=== PATIENT | female | born 1965 | race American Indian/Alaskan Native ===

== ENCOUNTER 2020-07-04 04:48 | Inpatient (IN) | payer MEDICARE ==
--- NOTE | 2020-07-04 05:56 | XRay Report ---
CHEST 1 VIEW 07/04/2020 5:46 AM INDICATION / CLINICAL INFORMATION: Chest Pain. COMPARISON: None available. FINDINGS: SUPPORT DEVICES: None. HEART / MEDIASTINUM: Heart is upper normal size. Median sternotomy wires and aortic valve prosthesis. LUNGS / PLEURA: No significant pulmonary or pleural abnormality. No pneumothorax. ADDITIONAL FINDINGS: Age-indeterminate bilateral lower rib fractures. Cervicothoracic spinal fusion h ardware. IMPRESSION: 1. No acute pulmonary or pleural findings. 2. Age-indeterminate rib fractures. Signer Name: Leonard Vidal MD Signed: 07/04/2020 5:51 AM Workstation Name: [id number]
[2020-07-04 06:09] LABS: Blood Urea Nitrogen 17 mg/dL (7-17); Calcium 8.5 mg/dL (8.4-10.2); Hemolysis Index 1
[2020-07-04 06:10] LABS: BUN/Creatinine Ratio 28
[2020-07-04 06:12] LABS: Mean Corpuscular HGB Conc 29 % (30-34); Mean Corpuscular Volume 75 fl (79-97); Platelet Count 576 K/mm3 (140-440); Red Blood Count 3.52 M/mm3 (3.65-5.03)
[2020-07-04 06:14] LABS: Hematocrit 26.3 % (30.3-42.9); Hemoglobin 7.6 gm/dl (10.1-14.3)
[2020-07-04 07:18] LABS: Anisocytosis 1+; Eosinophils % (Manual) 0 % (0.0-4.3); Hypochromasia 1+; Total Cells Counted 100
[2020-07-04 07:19] LABS: Platelet Estimate Consistent w Auto; Target Cells 1+
[2020-07-04] MEDS ORDERED: SODIUM CHLORIDE 0.9% 1000 ML 1,000 ML IV ONE (08:25)
--- NOTE | 2020-07-04 08:46 | Emergency Department Report ---
ED General Adult HPI - General Chief complaint: Chest Pain Stated complaint: FEEDING TUBE OUT/CHEST PAIN/SOB Time Seen by Provider: 07/04/20 07:40 Source: patient Mode of arrival: Ambulatory Limitations: No Limitations - History of Present Illness Initial comments: Patient is a 54-year-old female who is presenting with dysfunction of her feeding tube. Patient's feeding tube came out approximately 2 AM. States has been in since September 2019. She has a feeding tube because she is aspirating. Patient takes all of her medications and food through the feeding tube. She is just starting to advance her diet with ice chips and small amounts of water. Patient has a past medical history of Hodgkin's lymphoma. Patient states after the tube came out she started having some chest pressure palpitations or shortness of breath. She believes this is secondary to anxiety. Since she is arrived to the hospital she is feeling better. - Related Data Allergies Allergy/AdvReac Type Severity Reaction Status Date / Time ibuprofen Allergy Swelling Verified 07/04/20 05:02 ED Review of Systems ROS: Stated complaint: FEEDING TUBE OUT/CHEST PAIN/SOB Other details as noted in HPI Comment: All other systems reviewed and negative ED Past Medical Hx - Past Medical History Previous Medical History?: Yes Hx of Cancer: Yes (hodgkins) Hx Arthritis: Yes (Osteo) Hx COPD: Yes Additional medical history: Hypotension, Heart problems - Surgical History Past Surgical History?: Yes Hx Open Heart Surgery: Yes Additional Surgical History: left hip replacement, feeding tube, ablation, splee nectomy - Social History Smoking Status: Former Smoker ED Physical Exam - General Limitations: No Limitations General appearance: alert, in no apparent distress - Head Head exam: Present: atraumatic, normocephalic - Eye Eye exam: Present: normal appearance - ENT ENT exam: Present: mucous membranes moist - Neck Neck exam: Present: normal inspection - Respiratory Respiratory exam: Present: normal lung sounds bilaterally. Absent: respiratory distress, wheezes, rales, rhonchi - Cardiovascular Cardiovascular Exam: Present: regular rate, normal rhythm. Absent: systolic murmur, diastolic murmur, rubs, gallop - GI/Abdominal GI/Abdominal exam: Present: soft, normal bowel sounds. Absent: distended, tenderness, guarding - Extremities Exam Extremities exam: Present: normal inspection - Back Exam Back exam: Present: normal inspection - Neurological Exam Neurological exam: Present: alert, oriented X3 - Psychiatric Psychiatric exam: Present: normal affect, normal mood - Skin Skin exam: Present: warm, dry, intact, normal color. Absent: rash ED Course Vital Signs 07/04/20 04:59 Temperature 98.6 F Pulse Rate 107 H Respiratory 20 Rate Blood Pressure 128/78 O2 Sat by Pulse 92 Oximetry ED Medical Decision Making - Lab Data Result diagrams: 07/04/20 05:11 07/04/20 05:11 Lab Results 07/04/20 07/04/20 Range/Units 05:11 05:11 WBC 12.5 H (4.5-11.0) K/mm3 RBC 3.52 L (3.65-5.03) M/mm3 Hgb 7.6 L (10.1-14.3) gm/dl Hct 26.3 L (30.3-42.9) % MCV 75 L (79-97) fl MCH 22 L (28-32) pg MCHC 29 L (30-34) % RDW 20.0 H (13.2-15.2) % Plt Count 576 H (140-440) K/mm3 Lymph % (Auto) Supervisor Refining [place] % (Auto) Supervisor Refining Eos % (Auto) Supervisor Refining Baso % (Auto) Supervisor Refining Lymph # (Auto) Supervisor Refining [place] # (Auto) Supervisor Refining Eos # (Auto) Supervisor Refining Baso # (Auto) Supervisor Refining Add Manual Diff Complete Total Counted 100 Seg Neutrophils % Supervisor Refining Seg Neuts % (Manual) 71.0 H (40.0-70.0) % Band Neutrophils % 0 % Lymphocytes % (Manual) 13.0 L (13.4-35.0) % Reactive Lymphs % (Man) 0 % Monocytes % (Manual) 15.0 H (0.0-7.3) % Eosinophils % (Manual) 0 (0.0-4.3) % Basophils % (Manual) 1.0 (0.0-1.8) % Metamyelocytes % 0 % Myelocytes % 0 % Promyelocytes % 0 % Blast Cells % 0 % Nucleated RBC % 2.0 H (0.0-0.9) % Seg Neutrophils # Supervisor Refining Seg Neutrophils # Man 8.9 H (1.8-7.7) K/mm3 Band Neutrophils # 0.0 K/mm3 Lymphocytes # (Manual) 1.6 (1.2-5.4) K/mm3 Abs React Lymphs (Man) 0.0 K/mm3 Monocytes # (Manual) 1.9 H (0.0-0.8) K/mm3 Eosinophils # (Manual) 0.0 (0.0-0.4) K/mm3 Basophils # (Manual) 0.1 (0.0-0.1) K/mm3 Metamyelocytes # 0.0 K/mm3 Myelocytes # 0.0 K/mm3 Promyelocytes # 0.0 K/mm3 Blast Cells # 0.0 K/mm3 WBC Morphology Not Reportable Hypersegmented Neuts Not Reportable Hyposegmented Neuts Not Reportable Hypogranular Neuts Not Reportable Smudge Cells Not Reportable Toxic Granulation Not Reportable Toxic Vacuolation Not Reportable Dohle Bodies Not Reportable Pelger-Huet Anomaly Not Reportable Cris Rods Not Reportable Platelet Estimate Consistent w auto Clumped Platelets Not Reportable Plt Clumps, EDTA Not Reportable Large Platelets Not Reportable Giant Platelets Not Reportable Platelet Satelliting Not Reportable Plt Morphology Comment Not Reportable RBC Morphology Not Reportable Dimorphic RBCs Not Reportable Polychromasia Not Reportable Hypochromasia 1+ Poikilocytosis Not Reportable Anisocytosis 1+ Microcytosis Not Reportable Macrocytosis Not Reportable Spherocytes Not Reportable Pappenheimer Bodies Not Reportable Sickle Cells Not Reportable Target Cells 1+ Tear Drop Cells Not Reportable Ovalocytes Not Reportable Helmet Cells Not Reportable Rosen-Effie Bodies Not Reportable [place] Rings Not Reportable [place] Cells Not Reportable Bite Cells Not Reportable Crenated Cell Not Reportable Elliptocytes Not Reportable Acanthocytes (Spur) Not Reportable Rouleaux Not Reportable Hemoglobin C Crystals Not Reportable Schistocytes Not Reportable Malaria parasites Not Reportable Freddy Bodies Not Reportable Hem Pathologist Commnt No Sodium 131 L (137-145) mmol/L Potassium 4.4 (3.6-5.0) mmol/L Chloride 88.0 L (98-107) mmol/L Carbon Dioxide 27 (22-30) mmol/L Anion Gap 20 mmol/L BUN 17 (7-17) mg/dL Creatinine 0.6 (0.6-1.2) mg/dL Estimated GFR > 60 ml/min BUN/Creatinine Ratio 28 % Glucose 88 (65-100) mg/dL Calcium 8.5 (8.4-10.2) mg/dL Troponin T < 0.010 (0.00-0.029) ng/mL - Medical Decision Making At the time of my exam patient is feeding tube have been out for approximately 5 hours. Was a prolonged wait time to get the patient to the room. I attempted to pass a 22 and 24 [place] feeding tube was unsuccessful. There is a great deal of resistance and there was a small amount of bleeding. The stoma appears to have closed. Consulted GI and patient will be admitted to the hospitalist service. Patient's chest pain is likely atypical and secondary to anxiety. Patient does show evidence of some mild dehydration. Critical care attestation.: If time is entered above; I have spent that time in minutes in the direct care of this critically ill patient, excluding procedure time. ED Disposition Clinical Impression: Feeding tube dysfunction, Dehydration, Hyponatremia Disposition: OP ADMIT IP TO THIS HOSP Is pt being admited?: Yes Does the pt Need Aspirin: No Condition: Stable Referrals: PRIMARY CARE, [Primary Care Provider] - 3-5 Days Time of Disposition: 08:45
--- NOTE | 2020-07-04 09:27 | History and Physical Report ---
History of Present Illness Date of examination: 07/04/20 Date of admission: 07/04/20 09:21 Chief complaint: Dislodged PEG tube, shortness of breath and chest pain History of present illness: 54-year-old female patient with significant past medical history of Hodgkin's lymphoma, restless leg syndrome, chronic osteoarthritis, dysphagia status post PEG placement, on tube feeding with intermittent oral liquid diet, presented to the emergency room with dislodgment of PEG tube. Patient also reports that she has been having some chest pain/pressure/discomfor t shortness of breath and palpitations. Patient gives history of generalized anxiety disorder. Patient denies chest pain or shortness of breath at the time of my evaluation Past History Past Medical History: arthritis, COPD, hypertension, hypothyroidism, other (Hodgkin's lymphoma, peripheral neuropathy, restless leg syndrome, generalized anxiety, chronic hypotension) Past Surgical History: Other (PEG tube placement) Social history: denies: smoking (Quit many years ago), alcohol abuse, prescription drug abuse Family history: hypertension Medications and Allergies Allergies Allergy/AdvReac Type Severity Reaction Status Date / Time ibuprofen Allergy Swelling Verified 07/04/20 09:51 Home Medications Medication Instructions Recorded Confirmed Last Taken Type Acetaminophen 500 mg PO Q6H 07/04/20 07/04/20 07/03/20 History Albuterol Mdi (or & Nicu Only) 2 puff IH QID PRN 07/04/20 07/04/20 1 Day Ago History [ProAir HFA Inhaler] ~07/03/20 Aspirin [Adult Aspirin] 81 mg PO QDAY 07/04/20 07/04/20 07/03/20 History AtorvaSTATin [Lipitor] 40 mg PO QHS 07/04/20 07/04/20 07/03/20 History Budesonide/Formoterol Fumarate 10.2 gm IH BID 07/04/20 07/04/20 1 Day Ago History [Symbicort 80-4.5 Mcg Inhaler] ~07/03/20 Calcium Carbonate [Calcium 600MG 600 mg PO QDAY 07/04/20 07/04/20 07/03/20 History TAB] Carbidopa/Levodopa 25-100 [Sinemet] 1 each PO TID 07/04/20 07/04/20 07/03/20 History Gabapentin [Neurontin] 250 mg PO TID 10/07/04/20 07/03/20 08:00 History Hydrocortisone 10 mg PO BID 07/04/20 07/04/20 07/03/20 History Levothyroxine [Synthroid] 175 mcg PO QAM 07/04/20 07/04/20 07/03/20 History Meloxicam [Mobic] 7.5 mg PO QDAY 07/04/20 07/04/20 07/03/20 History Midodrine HCl 10 mg PO TID 07/04/20 07/04/20 07/03/20 History Sertraline HCl [Zoloft] 200 mg PO QDAY 07/04/20 07/04/20 1 Day Ago History ~07/03/20 buPROPion HCl [Zyban] 150 mg PO QDAY 07/04/20 07/04/20 1 Day Ago History ~07/03/20 buPROPion HCl [Zyban] 300 mg PO QDAY 07/04/20 07/04/20 07/03/20 History calcitrioL [Rocaltrol] 0.25 mcg PO QDAY 07/04/20 07/04/20 07/03/20 History diphenhydrAMINE [Benadryl CAP] 25 mg PO Q8HR PRN 07/04/20 07/04/20 07/03/20 History Review of Systems Constitutional: fatigue, weakness, no weight loss, no weight gain, no fever, no chills Ears, nose, mouth and throat: no nasal congestion, no nasal discharge Cardiovascular: chest pain, palpitations, shortness of breath, no orthopnea, no rapid/irregular heart beat Respiratory: shortness of breath, no cough, no hemoptysis Gastrointestinal: no abdominal pain, no nausea, no vomiting Genitourinary Female: no pelvic pain, no dysuria Musculoskeletal: arthritis, other (Restless leg syndrome), no myalgias Integumentary: no rash, no lesions Neurological: no paralysis, no seizures, no syncope Psychiatric: anxiety, no depression Endocrine: no cold intolerance, no heat intolerance Hematologic/Lymphatic: no easy bruising, no easy bleeding Allergic/Immunologic: no urticaria, no allergic rhinitis Exam - Constitutional Vitals: Temp Pulse Resp BP Pulse Ox 98.6 F 107 H 20 128/78 92 07/04/20 04:59 07/04/20 04:59 07/04/20 04:59 07/04/20 04:59 07/04/20 04:59 General appearance: Present: mild distress, other (Restless pacing up and down around the bed due to restless leg syndrome, patient did not get her medicine due to dislodged PEG) - EENT Eyes: Present: PERRL, EOM intact - Neck Neck: Present: supple, normal ROM - Respiratory Respiratory effort: normal Respiratory: bilateral: diminished, negative: rales, rhonchi, wheezing - Cardiovascular Rhythm: regular Heart Sounds: Present: S1 & S2 - Extremities Extremities: no ischemia, No edema - Abdominal General gastrointestinal: Present: soft, non-tender, non-distended, normal bowel sounds - Integumentary Integumentary: Present: clear, warm - Musculoskeletal Musculoskeletal: generalized weakness - Psychiatric Psychiatric: appropriate mood/affect, cooperative, other (Sometimes very anxious) - Neurologic Neurologic: moves all extremities (Restless legs pacing up and down) HEART Score - HEART Score Troponin: Troponin T < 0.010 ng/mL (0.00-0.029) 07/04/20 05:11 Results - Labs CBC & Chem 7: 07/04/20 05:11 07/04/20 05:11 Labs: Abnormal lab results 07/04/20 07/04/20 Range/Units 05:11 05:11 WBC 12.5 H (4.5-11.0) K/mm3 RBC 3.52 L (3.65-5.03) M/mm3 Hgb 7.6 L (10.1-14.3) gm/dl Hct 26.3 L (30.3-42.9) % MCV 75 L (79-97) fl MCH 22 L (28-32) pg MCHC 29 L (30-34) % RDW 20.0 H (13.2-15.2) % Plt Count 576 H (140-440) K/mm3 Seg Neuts % (Manual) 71.0 H (40.0-70.0) % Lymphocytes % (Manual) 13.0 L (13.4-35.0) % Monocytes % (Manual) 15.0 H (0.0-7.3) % Nucleated RBC % 2.0 H (0.0-0.9) % Seg Neutrophils # Man 8.9 H (1.8-7.7) K/mm3 Monocytes # (Manual) 1.9 H (0.0-0.8) K/mm3 Sodium 131 L (137-145) mmol/L Chloride 88.0 L (98-107) mmol/L Assessment and Plan --PEG tube dislodgment; GI consulted, n.p.o. from midnight IV fluids and supportive care Possible EGD and placement of new PEG tube Recommended clear liquids as tolerated[patient takes oral liquids at home] --Leukocytosis; SIRS, closely monitor --Atypical chest pain; Not present at the time of my evaluation Check serial cardiac enzymes, troponin negative x 2 Closely monitor cardiology consult if needed --Anemia; Monitor H&H and transfuse as needed --Hyponatremia; IV fluids, closely monitor electrolytes Supportive care --Hypothyroidism; continue Synthroid When able to take oral --Dyslipidemia; continue statin After PEG is replaced --Peripheral neuropathy; Continue gabapentin after PEG is placed --Restless leg syndrome; Continue Sinemet, after PEG is placed --Chronic hypotension; Continue midodrine, after PEG is placed --Generalized anxiety/depression; Patient is on psych medications, resume after PEG is placed Consider psych evaluation if needed --DVT prophylaxis; Lovenox We will closely monitor the patient and adjust management as needed Plan of care reviewed with the patient and her nurse Follow GI evaluation and recommendations Discharge planning per case management when patient is medically stable
[2020-07-04] MEDS ORDERED: SODIUM CHLORIDE 0.9% 1000 ML 1,000 ML ONE (09:48)
[2020-07-04] MEDS ORDERED: LORazepam 2 MG/ML VIAL IV ONE (09:56)
[2020-07-04] MEDS ORDERED: LORazepam 2 MG/ML VIAL ONE (09:57)
[2020-07-04] MEDS ORDERED: ALBUTEROL 2.5 MG/3 ML NEBU IH PRN (12:49)
[2020-07-04] MEDS: LORazepam 2 MG/ML VIAL IV PRN ×3 (13:28→22:37)
[2020-07-04] MEDS: D5W/0.9% NACL 1,000 ML IV SCH ×2 (13:30→22:37)
[2020-07-04] MEDS: GABAPENTIN 500 MG/10 ML ORAL LIQD PO SCH ×2 (16:50→21:07)
[2020-07-04] MEDS: MIDODRINE 5 MG TAB PO SCH ×2 (16:50→21:07)
--- NOTE | 2020-07-04 16:59 | Consultation ---
REFERRING PHYSICIAN: Isabella Krishna MD INDICATION: PEG tube malfunction. HISTORY OF PRESENT ILLNESS: The patient is a 54-year-old female presents after her PEG tube fell out. The patient has a history of COPD, hypertension, and Hodgkin's lymphoma. The patient reports approximately 2 a.m. this morning, the feeding tube fell out. The patient had been on feeding tube for aspiration issues. She denies any abdominal pain, nausea, vomiting or other specific complaints. Denies any lower GI symptoms. An attempt was made to save the whole, but was unsuccessful. She subsequently was admitted and GI consulted. PAST MEDICAL HISTORY: Includes hypertension, Hodgkin's lymphoma. MEDICATIONS: Reviewed and updated in chart. ALLERGIES: No known drug allergies. SOCIAL HISTORY: Denies alcohol, tobacco, or drug abuse. FAMILY HISTORY: Negative for colon cancer, IBD, or liver disease. REVIEW OF SYSTEMS: GENERAL: Some weakness. HEENT: No visual complaints or tinnitus. PULMONARY: No shortness of breath. No cough. No chest pain. GASTROINTESTINAL: Reports no specific complaints. All points of 13-point review of systems otherwise negative. PHYSICAL EXAMINATION: VITAL SIGNS: Temperature of 98.7, pulse 100, respirations 20, blood pressure 118/70. GENERAL: Fairly nourished female, in no acute distress. HEENT: Pupils equal, round and reactive. PULMONARY: Rhonchi. CARDIOVASCULAR: Regular rhythm. ABDOMEN: Positive bowel sounds, soft. SKIN: No obvious rashes. LABORATORY DATA: Pertinent for a white count of 12.5, hemoglobin and hematocrit of 7.6 and 26.3, platelet count 576. Chem-7 within normal limits except for a sodium of 131. ASSESSMENT AND PLAN: A 54-year-old female presents after having a PEG tube fell out, which she was using for aspiration. PLAN: 1. N.p.o. after midnight. 2. Coags in the morning. 3. Plan EGD with PEG tube placement in a.m. JOB# [id number] [facility]/NTS
[2020-07-04] MEDS: ARFORMOTEROL 15 MCG/2 ML NEBU IH SCH (21:00)
[2020-07-04] MEDS: BUDESONIDE 0.5 MG/2 ML NEBU IH SCH (21:00)
[2020-07-04] MEDS: HYDROCORTISONE 10 MG TAB PO SCH (21:07)
[2020-07-04] MEDS ORDERED: FORMOTEROL FUMARATE IH SCH (22:00)
[2020-07-04] MEDS ORDERED: BUDESONIDE IH SCH (22:00)
[2020-07-04] MEDS ORDERED: [UNRECOGNIZED DRUG - OTHER] IH SCH (22:00)
[2020-07-05] MEDS ORDERED: LEVOTHYROXINE 150 MCG, LEVOTHYROXINE 25 MCG PO SCH (06:00)
[2020-07-05] MEDS: D5W/0.9% NACL 1,000 ML IV SCH (09:12)
[2020-07-05] MEDS: MORPHINE 2 MG/1 ML INJ IV PRN ×3 (09:12→15:26)
[2020-07-05 09:13] LABS: INR 1.17 (0.87-1.13); Partial Thromboplastin Time 28.6 Sec. (24.2-36.6)
[2020-07-05] MEDS: BUDESONIDE 0.5 MG/2 ML NEBU IH SCH ×2 (09:25→20:34)
[2020-07-05] MEDS: ARFORMOTEROL 15 MCG/2 ML NEBU IH SCH ×2 (09:25→20:34)
[2020-07-05] MEDS ORDERED: LEVOTHYROXINE 150 MCG TAB PO SCH (10:00)
[2020-07-05] MEDS ORDERED: PANTOPRAZOLE 40 MG INJ IV SCH (10:00)
[2020-07-05] MEDS ORDERED: buPROPion XL 150 MG TAB PO SCH (10:00)
[2020-07-05] MEDS ORDERED: SERTRALINE 100 MG TAB PO SCH (10:00)
[2020-07-05] MEDS ORDERED: CALCITRIOL 0.25 MCG CAP PO SCH (10:00)
[2020-07-05] MEDS ORDERED: ASPIRIN EC 81 MG TAB PO SCH (10:00)
[2020-07-05] MEDS ORDERED: SODIUM CHLORIDE 0.9% 1000 ML 1,000 ML IV SCH (10:15)
--- NOTE | 2020-07-05 10:25 | Anesthesia Day of Surgery ---
Anesthesia Day of Surgery - Day of Surgery Patient Examined: Yes Patient H&P Reviewed: Yes Patient is NPO: Yes
--- NOTE | 2020-07-05 10:25 | Anesthesia Consultation ---
Anesthesia Consult and Med Hx Date of service: 07/05/20 - Airway Anesthetic Teeth Evaluation: Edentulous ROM Head & Neck: Inadequate (restricted ext/flex and lateral movement 2/2 neck surgery) Mental/Hyoid Distance: Adequate Mallampati Class: Class II Intubation Access Assessment: Possibly Difficult - Pulmonary Exam CTA: Yes - Cardiac Exam Cardiac Exam: RRR - Pre-Operative Health Status ASA Pre-Surgery Classification: ASA4 Proposed Anesthetic Plan: MAC - Pulmonary Hx Smoking: Yes (quit many years ago) Hx Respiratory Symptoms: Yes (stable orthopnea) COPD: Yes Home Oxygen Therapy: Yes (2L prn) - Cardiovascular System Hx Hypertension: Yes Hx Coronary Artery Disease: Yes (s/p CABG 2010; states hx CHF, no cardiac records available) Hx Percutaneous Transluminal Coronary Angioplasty (PTCA): No Hx Cardia Arrhythmia: No Hx Pacemaker: No Hx Internal Defibrillator: No - Central Nervous System Hx Neuromuscular Disorder: Yes (restless leg syndrome) CVA: No Hx Psychiatric Problems: Yes (generalized anxiety) - Gastrointestinal Hx Gastroesophageal Reflux Disease: No (dysphagia s/p PEG placement) - Endocrine Hx Renal Disease: No Hx Liver Disease: No Hx Insulin Dependent Diabetes: No Hx Non-Insulin Dependent Diabetes: No Hx Hypothyroidism: Yes - Hematic Hx Anemia: Yes - Other Systems Hx Cancer: Yes (hx hodgkin lymphoma) Hx Obesity: No - Additional Comments Anesthesia Medical History Comments: No hx anesthetic complications. PEG dislodged now scheduled to be replaced.
[2020-07-05] MEDS ORDERED: ceFAZolin/Water 2 GM/20 ML 2 GM/20 ML SYRINGE IV ONE (10:27)
[2020-07-05] MEDS ORDERED: fentaNYL 100 MCG/2 ML INJ ONE (10:50)
[2020-07-05] MEDS ORDERED: propofoL 200 MG/20 ML VIAL IV ONE (10:51)
[2020-07-05] MEDS ORDERED: ceFAZolin/Water 2 GM/20 ML 2 GM/20 ML SYRINGE IV NR (11:00)
--- NOTE | 2020-07-05 11:32 | Post Operative Note ---
Pre-op diagnosis: peg Findings: EGD: hiatal hernia - previous peg site noted, intact - otherwise nl egd - 20 F pull peg placed, bumper at 3 1/2 cm Procedure: EGD/peg Anesthesia: MAC Surgeon: AUDRA CARRERA Estimated blood loss: none Pathology: list Specimen disposition: to lab Condition: stable Disposition: floor
--- NOTE | 2020-07-05 12:32 | Post Anesthesia Evaluation ---
- Post Anesthesia Evaluation Patient Participated: Yes Airway Patent: Yes Stable Respiratory Function: Yes Nausea/Vomiting: No Temp > 96.8F: Yes Pain Manageable: Yes Adequeate Hydration: Yes Anesthesia Complications: No
--- NOTE | 2020-07-05 12:42 | Operative Report ---
PROCEDURE: EGD with PEG tube placement. INDICATIONS: 1. PEG tube placement. 2. Nutrition support. 3. Dysphagia. MEDICATIONS: Propofol per NAIL ASSEMBLY MACHINE OPERATOR. COMPLICATIONS: None. DESCRIPTION OF PROCEDURE: The patient brought to procedure suite. The patient had the procedure discussed with her at length. All risks, complications, and benefits discussed, after which the patient signed for the procedure performed. The patient was placed in supine position. Mouth block was placed in the patient's oral cavity. After adequate sedation medication as above, endoscope placed in mouth and brought to level of the second portion of duodenum. Retroflexion view performed. The patient's vital signs remained stable throughout the procedure. FINDINGS: There was noted to be a small hiatal hernia at GE junction at 38 cm from the gums. Esophagus otherwise appeared to be normal. There was noted to be a closed small ulcer area noted in the gastric body, which represent previous PEG tube site. No signs of bleeding or other stigmata were noted from that area. The remaining stomach otherwise grossly appeared normal. The duodenum appeared normal. Retroflexion view performed in the stomach showed no other pathology other than noted above. After this, especially using standard technique and transillumination, area for adequate placement of PEG was found. A 20-J[place]ican pull PEG was then placed. Bump was noted to be at 3.5 cm. Post-procedure appearance was satisfactory. The patient tolerated the procedure well. No complications during the procedure. IMPRESSION: 1. Hiatal hernia. 2. Otherwise, normal esophagus. 3. Previous PEG tube site noted intact. 4. Otherwise, grossly normal stomach. 5. Normal duodenum. 6. PEG tube placed without obvious complications. RECOMMENDATIONS: 1. Standard PEG tube orders, see chart. 2. Watch for signs of bleeding or infection. 3. Okay to use PEG tube in 6 hours. 4. Okay to discharge later today or in a.m. JOB# [id number] [facility]/NTS
[2020-07-05] MEDS ORDERED: LIPASE 10,500/PROTEASE 25,000/AMYLASE 43,750 (UNITS) DR CAP FEEDTUBE PRN (12:43)
[2020-07-05] MEDS ORDERED: SIMPLE SYRUP 15 ML FEEDTUBE PRN ×2 (12:43)
[2020-07-05] MEDS ORDERED: SODIUM BICARBONATE 325 MG TAB FEEDTUBE PRN (12:43)
--- NOTE | 2020-07-05 13:43 | XRay Report ---
BILATERAL RIB SERIES, 6 VIEWS INDICATION: fall/rib pain. COMPARISON: Chest radiograph 07/04/2020 FINDINGS: On the included chest radiograph, there is a small left pleural effusion. There are minimally displaced fractures through the lateral right seventh and eighth ribs. There are minimally displaced fractures through the posterior lateral left seventh and eighth ribs. IMPRESSION: 1. Minimally displaced fractures through the bilateral seventh and eighth ribs. There is a small left pleural effusion. No pneumothorax is seen. Signer Name: Brad Macdonald MD Signed: 07/05/2020 1:39 PM Workstation Name: [id number]
[2020-07-05] MEDS: GABAPENTIN 500 MG/10 ML ORAL LIQD PO SCH ×4 (15:09→22:37)
[2020-07-05] MEDS: MIDODRINE 5 MG TAB PO SCH ×3 (15:12→22:45)
[2020-07-05] MEDS: HYDROCORTISONE 10 MG TAB PO SCH ×2 (15:12→22:32)
[2020-07-05] MEDS ORDERED: MORPHINE 2 MG/1 ML INJ IV PRN (18:11)
[2020-07-05] MEDS ORDERED: oxyCODONE /ACETAMINOPHEN 5-325MG TAB PO PRN (18:11)
--- NOTE | 2020-07-05 20:07 | Progress Note ---
Assessment and Plan Assessment and plan: --PEG tube dislodgment; GI evaluated the patient s/p new PEG placement today Patient tolerated the procedure well Resume oral clear liquid diet And start using PEG tube for medications And tube feeds if needed --Leukocytosis; SIRS, closely monitor --Anemia; Monitor H&H and transfuse as needed --Hyponatremia; IV fluids, closely monitor electrolytes Supportive care --Hypothyroidism; continue Synthroid When able to take oral --Dyslipidemia; continue statin After PEG is replaced --Peripheral neuropathy; Continue gabapentin after PEG is placed --Restless leg syndrome; Continue Sinemet, after PEG is placed --Chronic hypotension; Continue midodrine, after PEG is placed --Generalized anxiety/depression; Patient is on psych medications, resume after PEG is placed Consider psych evaluation if needed --DVT prophylaxis; Lovenox We will closely monitor the patient and adjust management as needed Resume patient's oral full liquid diet, start using PEG tube for medication Possible discharge home tomorrow if stable Plan of care reviewed with the patient and her nurse Hospitalist Physical - Constitutional Vitals: Temp Pulse Resp BP Pulse Ox 98.2 F 108 H 18 138/68 98 07/05/20 11:48 07/05/20 11:48 07/05/20 11:48 07/05/20 11:48 07/05/20 11:48 General appearance: Present: mild distress, other (Restless pacing up and down around the bed) - EENT Eyes: Present: PERRL, EOM intact - Neck Neck: Present: supple, normal ROM - Respiratory Respiratory effort: normal Respiratory: bilateral: diminished, negative: rales, rhonchi, wheezing - Cardiovascular Rhythm: regular Heart Sounds: Present: S1 & S2 - Extremities Extremities: no ischemia, No edema - Abdominal General gastrointestinal: soft, non-tender, non-distended, normal bowel sounds - Integumentary Integumentary: Present: clear, warm - Psychiatric Psychiatric: appropriate mood/affect, cooperative - Neurologic Neurologic: moves all extremities HEART Score - HEART Score Troponin: Troponin T < 0.010 ng/mL (0.00-0.029) 07/04/20 15:11 Results - Labs CBC & Chem 7: 07/04/20 05:11 07/04/20 05:11 Labs: Laboratory Last Values WBC 12.5 K/mm3 (4.5-11.0) H 10/25/20 05:11 RBC 3.52 M/mm3 (3.65-5.03) L 07/04/20 05:11 Hgb 7.6 gm/dl (10.1-14.3) L 07/04/20 05:11 Hct 26.3 % (30.3-42.9) L 07/04/20 05:11 MCV 75 fl (79-97) L 07/04/20 05:11 MCH 22 pg (28-32) L 07/04/20 05:11 MCHC 29 % (30-34) L 07/04/20 05:11 RDW 20.0 % (13.2-15.2) H 07/04/20 05:11 Plt Count 576 K/mm3 (140-440) H 07/04/20 05:11 Lymph % (Auto) Pony Trimmer 07/04/20 05:11 Real % (Auto) Pony Trimmer 07/04/20 05:11 Eos % (Auto) Pony Trimmer 07/04/20 05:11 Baso % (Auto) Pony Trimmer 07/04/20 05:11 Lymph # (Auto) Pony Trimmer 07/04/20 05:11 Real # (Auto) Pony Trimmer 07/04/20 05:11 Eos # (Auto) Pony Trimmer 07/04/20 05:11 Baso # (Auto) Pony Trimmer 07/04/20 05:11 Add Manual Diff Complete 07/04/20 05:11 Total Counted 100 07/04/20 05:11 Seg Neutrophils % Pony Trimmer 07/04/20 05:11 Seg Neuts % (Manual) 71.0 % (40.0-70.0) H 07/04/20 05:11 Band Neutrophils % 0 % 07/04/20 05:11 Lymphocytes % (Manual) 13.0 % (13.4-35.0) L 07/04/20 05:11 Reactive Lymphs % (Man) 0 % 07/04/20 05:11 Monocytes % (Manual) 15.0 % (0.0-7.3) H 07/04/20 05:11 Eosinophils % (Manual) 0 % (0.0-4.3) 07/04/20 05:11 Basophils % (Manual) 1.0 % (0.0-1.8) 07/04/20 05:11 Metamyelocytes % 0 % 07/04/20 05:11 Myelocytes % 0 % 07/04/20 05:11 Promyelocytes % 0 % 07/04/20 05:11 Blast Cells % 0 % 07/04/20 05:11 Nucleated RBC % 2.0 % (0.0-0.9) H 07/04/20 05:11 Seg Neutrophils # Pony Trimmer 07/04/20 05:11 Seg Neutrophils # Man 8.9 K/mm3 (1.8-7.7) H 07/04/20 05:11 Band Neutrophils # 0.0 K/mm3 07/04/20 05:11 Lymphocytes # (Manual) 1.6 K/mm3 (1.2-5.4) 07/04/20 05:11 Abs React Lymphs (Man) 0.0 K/mm3 07/04/20 05:11 Monocytes # (Manual) 1.9 K/mm3 (0.0-0.8) H 07/04/20 05:11 Eosinophils # (Manual) 0.0 K/mm3 (0.0-0.4) 07/04/20 05:11 Basophils # (Manual) 0.1 K/mm3 (0.0-0.1) 07/04/20 05:11 Metamyelocytes # 0.0 K/mm3 07/04/20 05:11 Myelocytes # 0.0 K/mm3 07/04/20 05:11 Promyelocytes # 0.0 K/mm3 07/04/20 05:11 Blast Cells # 0.0 K/mm3 07/04/20 05:11 WBC Morphology Not Reportable 07/04/20 05:11 Hypersegmented Neuts Not Reportable 07/04/20 05:11 Hyposegmented Neuts Not Reportable 07/04/20 05:11 Hypogranular Neuts Not Reportable 07/04/20 05:11 Smudge Cells Not Reportable 07/04/20 05:11 Toxic Granulation Not Reportable 07/04/20 05:11 Toxic Vacuolation Not Reportable 07/04/20 05:11 Dohle Bodies Not Reportable 07/04/20 05:11 Pelger-Huet Anomaly Not Reportable 07/04/20 05:11 Cris Rods Not Reportable 07/04/20 05:11 Platelet Estimate Consistent w auto 07/04/20 05:11 Clumped Platelets Not Reportable 07/04/20 05:11 Plt Clumps, EDTA Not Reportable 07/04/20 05:11 Large Platelets Not Reportable 07/04/20 05:11 Giant Platelets Not Reportable 07/04/20 05:11 Platelet Satelliting Not Reportable 07/04/20 05:11 Plt Morphology Comment Not Reportable 07/04/20 05:11 RBC Morphology Not Reportable 07/04/20 05:11 Dimorphic RBCs Not Reportable 07/04/20 05:11 Polychromasia Not Reportable 07/04/20 05:11 Hypochromasia 1+ 07/04/20 05:11 Poikilocytosis Not Reportable 07/04/20 05:11 Anisocytosis 1+ 07/04/20 05:11 Microcytosis Not Reportable 07/04/20 05:11 Macrocytosis Not Reportable 07/04/20 05:11 Spherocytes Not Reportable 07/04/20 05:11 Pappenheimer Bodies Not Reportable 07/04/20 05:11 Sickle Cells Not Reportable 07/04/20 05:11 Target Cells 1+ 07/04/20 05:11 Tear Drop Cells Not Reportable 07/04/20 05:11 Ovalocytes Not Reportable 07/04/20 05:11 Helmet Cells Not Reportable 07/04/20 05:11 Rosen-Cibola Bodies Not Reportable 07/04/20 05:11 Quincy Rings Not Reportable 07/04/20 05:11 [place] Cells Not Reportable 07/04/20 05:11 Bite Cells Not Reportable 07/04/20 05:11 Crenated Cell Not Reportable 07/04/20 05:11 Elliptocytes Not Reportable 07/04/20 05:11 Acanthocytes (Spur) Not Reportable 07/04/20 05:11 Rouleaux Not Reportable 07/04/20 05:11 Hemoglobin C Crystals Not Reportable 07/04/20 05:11 Schistocytes Not Reportable 07/04/20 05:11 Malaria parasites Not Reportable 07/04/20 05:11 Freddy Bodies Not Reportable 07/04/20 05:11 Hem Pathologist Commnt No 07/04/20 05:11 PT 15.0 Sec. (12.2-14.9) H 07/05/20 08:00 INR 1.17 (0.87-1.13) H 07/05/20 08:00 APTT 28.6 Sec. (24.2-36.6) 07/05/20 08:00 Sodium 131 mmol/L (137-145) L 07/04/20 05:11 Potassium 4.4 mmol/L (3.6-5.0) 07/04/20 05:11 Chloride 88.0 mmol/L (98-107) L 07/04/20 05:11 Carbon Dioxide 27 mmol/L (22-30) 07/04/20 05:11 Anion Gap 20 mmol/L 07/04/20 05:11 BUN 17 mg/dL (7-17) 07/04/20 05:11 Creatinine 0.6 mg/dL (0.6-1.2) 07/04/20 05:11 Estimated GFR > 60 ml/min 07/04/20 05:11 BUN/Creatinine Ratio 28 % 07/04/20 05:11 Glucose 88 mg/dL (65-100) 07/04/20 05:11 Calcium 8.5 mg/dL (8.4-10.2) 07/04/20 05:11 Troponin T < 0.010 ng/mL (0.00-0.029) 07/04/20 15:11 Arechiga/IV: Voiding Method Toilet IV Catheter Type [Left Forearm INT / Saline Lock ] Active Medications - Current Medications Current Medications: Generic Name Dose Route Start Last Admin Trade Name Freq PRN Reason Stop Dose Admin Albuterol 2 mg 07/04/20 12:49 Proventil IH Q6HRT PRN Shortness Of Breath Lipase/Protease/Amylase 1 each 07/05/20 12:[address] 10,500 Unit FEEDTUBE PRN PRN For Clogged Feeding Tube Arformoterol Tartrate 15 mcg 07/04/20 20:00 07/05/20 09:25 Brovana Nebu IH 15 mcg Q12HRT LILA Administration Aspirin 81 mg 07/05/20 10:00 07/05/20 15:13 Halfprin Ec PO 81 mg QDAY LILA Administration Atorvastatin Calcium 40 mg 07/04/20 22:00 07/04/20 21:07 Lipitor PO Not Given QHS LILA Budesonide 1 mg 07/04/20 20:00 07/05/20 09:25 Pulmicort IH 1 mg Q12HRT LILA Administration Bupropion HCl 150 mg 07/05/20 10:00 07/05/20 15:12 Wellbutrin Xl PO 150 mg QDAY LILA Administration Calcitriol 0.25 mcg 07/05/20 10:00 07/05/20 15:14 Rocaltrol PO 0.25 mcg QDAY LILA Administration Gabapentin 250 mg 07/04/20 14:00 07/05/20 15:58 Gabapentin PO Not Given TID LILA Hydrocortisone Acetate 10 mg 07/04/20 22:00 07/05/20 15:12 Cortef PO 10 mg BID LILA Administration Dextrose/Sodium Chloride 1,000 mls @ 100 mls/hr 07/04/20 13:00 07/05/20 09:12 D5ns IV 100 mls/hr DIRECT LILA Administration Sodium Chloride 1,000 mls @ 50 mls/hr 07/05/20 10:15 Nacl 0.9% 1000 Ml IV 07/06/20 06:14 DIRECT LILA Cefazolin Sodium 2 gm in 20 mls @ 80 mls/hr 07/05/20 11:00 Ancef/Sterile Water 2 Gm/20 Ml IV 07/05/20 23:00 PREOP NR Protocol Levothyroxine Sodium 150 mcg/ 175 mcg 07/05/20 06:00 07/05/20 06:06 Levothyroxine Sodium 25 mcg PO Not Given DAILY@0600 [facility] Lorazepam 1 mg 07/04/20 12:46 07/04/20 22:37 Ativan IV 1 mg Q4H PRN Administration Agitation Midodrine 10 mg 07/04/20 14:00 07/05/20 15:28 Proamatine PO Not Given TID [facility] Morphine Sulfate 2 mg 07/05/20 18:11 Morphine IV Q6H PRN Pain, Moderate (4-6) Oxycodone/Acetaminophen 1 tab 07/05/20 18:11 07/05/20 19:53 Percocet 5/325 PO 1 tab Q6H PRN Administration Pain, Moderate (4-6) Pantoprazole Sodium 40 mg 07/05/20 10:00 07/05/20 15:13 Protonix IV 40 mg QDAY LILA Administration Sertraline HCl 200 mg 07/05/20 10:00 07/05/20 15:13 Zoloft PO 200 mg QDAY LILA Administration Simple Syrup 15 ml 07/05/20 12:43 Simple Syrup FEEDTUBE PRN PRN Hypoglycemia Simple Syrup 30 ml 07/05/20 12:43 Simple Syrup FEEDTUBE PRN PRN Hypoglycemia Sodium Bicarbonate 325 mg 07/05/20 12:43 Sodium Bicarbonate FEEDTUBE PRN PRN For Clogged Feeding Tube Nutrition/Malnutrition Assess - Dietary Evaluation Nutrition/Malnutrition Findings: Nutrition Notes Start: 07/05/20 11:28 Freq: Status: Active Protocol: Document 07/05/20 11:28 LM (Rec: 07/05/20 11:46 LM [id number]) Nutrition Notes Need for Assessment generated from: MD Order,automatic equipment technician Initial or Follow up Assessment Other Pertinent Diagnosis Dislodged PEG, dysphagia, Hodgkin's Lymphoma, anemia, restless leg syndrome Current Diet NPO Labs/Tests 07/04 Na 131 Pertinent Medications D5NS at 100ml/hr Height 5 ft 3 in Weight 66.1 kg [place] Body Weight (kg) 52.27 BMI 25.8 Weight Status Overweight Subjective/Other Information MD consult for TF and malnutrition. RN screen for pt receiving TF. Unable to speak to pt due to surgery today. Burn Absent Trauma Absent Difficulty In Swallowing Current % PO Negligible Minimum of two criteria No physical signs of malnutrition #1 Nutrition Diagnosis Inadequate oral intake Etiology dysphagia As Evidenced by Signs and Symptoms Pt is PEG dependent Is patient on ventilator? No Is Patient Ambulatory and/or Out of Bed Yes REE-([place]-ambulatory/OOB) [ [id number] [id number]] Calculation Used for Recommendations [facility] Additional Notes Protein: 53-66g (0.8-1g/kg) Fluid: 1ml/kcal Nutrition Intervention Change Diet Order: TF Nutrition Support: Jevity 1.2 at 55ml/hr Flush 50ml q6h for hyponatrmeia Flush 90ml q4h once resolved Kcal 1,584 Protein (gm) 73 Fluid (mL) 1,065 Goal #1 TF start/tolerance Anticipated Discharge Needs: TF Follow-Up By: 07/07/20 Additional Comments F/U for full assessment, TF tolerance, Na
[2020-07-05 20:17] VITALS: BP 112/64
[2020-07-06] MEDS ORDERED: SERTRALINE 100 MG TAB ONE (01:30)
[2020-07-06] MEDS ORDERED: CALCITRIOL 0.25 MCG CAP PO ONE (01:30)
[2020-07-06] MEDS ORDERED: ASPIRIN EC 81 MG TAB PO ONE (01:30)
[2020-07-06] MEDS ORDERED: PANTOPRAZOLE 40 MG INJ IV ONE (01:30)
[2020-07-06] MEDS ORDERED: LORazepam 2 MG/ML VIAL ONE (01:30)
[2020-07-06] MEDS ORDERED: HYDROcodone/ACETAMINOPHEN 5-325 MG TAB ONE (01:30)
[2020-07-06] MEDS ORDERED: D5NS 1000 ML IV SOLN IV ONE (01:30)
[2020-07-06] MEDS ORDERED: MIDODRINE 5 MG TAB ONE (01:30)
[2020-07-06] MEDS ORDERED: buPROPion XL 150 MG TAB PO ONE (01:30)
[2020-07-06] MEDS ORDERED: MORPHINE 2 MG/1 ML INJ ONE (06:00)
--- NOTE | 2020-07-06 19:20 | Discharge Summary ---
Providers - Providers Date of Admission: 07/05/20 14:45 Date of discharge: 07/06/20 Attending physician: SONYA STEVENS 07/04/20 09:29 Consult to Physician [CONS] Routine Comment: Consulting Provider: AUDRA CARRERA Physician Instructions: Reason For Exam: Displaced PEG tube 07/04/20 12:46 Consult to Dietitian/Nutrition [CONS] Routine Physician Instructions: Reason For Exam: Reason for Consult: Malnutrition 07/05/20 11:42 Consult to Dietitian/Nutrition [CONS] Routine Physician Instructions: Reason For Exam: Reason for Consult: post-peg Primary care physician: RN ENDOSCOPY Hospitalization Reason for admission: Dislodged PEG tube Condition: Stable Pertinent studies: Chest x-ray Rib series Procedures: EGD/PEG replacement Hospital course: Date of service 07/06/2020; Late entry; [employer]/computers are down. Discharge meds , discharge instruction on paper sheet 54-year-old female patient with significant past medical history of Hodgkin's lymphoma, restless leg syndrome, chronic osteoarthritis, generalized anxiety disorder, dysphagia status post PEG placement, on tube feeding with intermittent oral liquid diet, presented to the emergency room with dislodgment of PEG tube. Patient takes medications through the PEG tube. Patient also reports that she has some intermittent chest pain/pressure/discomfort shortness of breath and palpitations and reports probably due to her generalized anxiety disorder, resolved since came to the hospital, Patient has history of generalized anxiety disorder for a long time Patient denies chest pain or shortness of breath at the time of my evaluation. Patient was admitted to the hospital, appropriately managed, evaluated by GI, subsequently underwent EGD and replacement of PEG. Patient tolerated the procedure well. Patient has history of recurrent falls with multiple rib fractures in the past, complained of some vague rib cage pain, rib series obtained, no acute changes minimally displaced, lateral seventh and eighth ribs, mild pleural effusion. Patient denies any recent trauma or falls, patient did not have any respiratory symptoms, pain relieved with analgesics. Today patient is comfortable no new complaints vital signs stable Physical examination prior to discharge no new changes Cleared by GI for discharge and follow-up primary care physician per schedule. Patient is hemodynamically and clinically stable at discharge Discharge diagnosis; --Dislodged PEG tube; GI evaluated, tube replaced --Restless leg syndrome; on Sinemet --History of Hodgkin's lymphoma[childhood] stable --History of PEG; patient use PEG for medications, takes liquids by mouth --Generalized anxiety disorder; stable on medications --Atypical chest pain; serial cardiac enzymes x3, symptoms resolved even before admission --History of rib fractures; rib series in the hospital no acute changes --Mild hyponatremia, slightly improved Patient is hemodynamically and clinically stable at discharge. Disposition: -01 TO HOME OR SELFCARE Time spent for discharge: 33 min Core Measure Documentation - Palliative Care Palliative Care/ Comfort Measures: Not Applicable - Core Measures Any of the following diagnoses?: none Exam - Constitutional Vitals: Temp Pulse Resp BP Pulse Ox 98.2 F 106 H 18 112/64 90 07/05/20 18:41 07/05/20 20:38 07/05/20 20:38 07/05/20 18:41 07/05/20 20:39 General appearance: Present: no acute distress, well-nourished - EENT Eyes: Present: PERRL, EOM intact - Neck Neck: Present: supple, normal ROM - Respiratory Respiratory effort: normal Respiratory: bilateral: diminished, negative: rales, rhonchi, wheezing - Cardiovascular Rhythm: regular Heart Sounds: Present: S1 & S2 - Extremities Extremities: no ischemia, No edema - Abdominal General gastrointestinal: Present: soft, non-tender, non-distended, normal bowel sounds - Integumentary Integumentary: Present: clear, warm - Musculoskeletal Musculoskeletal: strength equal bilaterally, generalized weakness - Psychiatric Psychiatric: appropriate mood/affect, cooperative - Neurologic Neurologic: moves all extremities Plan Activity: advance as tolerated, fall precautions, other (Aspiration precautions) Diet: clear liquids (Oral clear liquids as tolerated), other (Tube feeding per protocol as needed, meds through the PEG tube) Additional Instructions: Advised to follow primary care physician in 3 to 5 days. If you have worsening symptoms contact MD or report to emergency room as needed. Aspiration precautions Follow up with: PRIMARY CARE,MD [Primary Care Provider] - 3-5 Days
--- NOTE | 2020-07-06 21:38 | Gastroenterology Progress Note ---
Assessment and Plan GI: s/p peg w/o obvious complications -ok to use as needed - will sign off, call if needed Subjective Date of service: 07/06/20 Interval history: - no specific GI issues overnight Objective - Constitutional Vitals: Temp Pulse Resp BP Pulse Ox 98.2 F 106 H 18 112/64 90 07/05/20 18:41 07/05/20 20:38 07/05/20 20:38 07/05/20 18:41 07/05/20 20:39 General appearance: no acute distress - EENT Eyes: PERRL - Respiratory Respiratory: bilateral: CTA - Cardiovascular Rhythm: regular Heart Sounds: Present: S1 & S2 - Gastrointestinal General gastrointestinal: Present: soft, non-tender, non-distended - Labs CBC & Chem 7: 07/04/20 05:11 07/04/20 05:11
== END 2020-07-06 16:20 | disposition home or self-care (01) | DRG 394 ==
LOC: ED 04:48 → 3A 09:21 → OBSVTOIN 07-05 14:45
PROVIDERS: ADMIT Internal Medicine; ATTEND Internal Medicine
PROC: 0DH63UZ Insertion of Feeding Device into Stomach, Percutaneous Approach (ICD-10-PCS; principal; 2020-07-05)
DX: K94.23 Gastrostomy malfunction (principal); E87.1 Hypo-osmolality and hyponatremia; R65.10 Systemic inflammatory response syndrome (SIRS) of non-infectious origin without acute organ dysfunction; E78.5 Hyperlipidemia, unspecified; E86.0 Dehydration; D64.9 Anemia, unspecified; D72.829 Elevated white blood cell count, unspecified; E03.9 Hypothyroidism, unspecified; G62.9 Polyneuropathy, unspecified; G25.81 Restless legs syndrome; I95.89 Other hypotension; F41.1 Generalized anxiety disorder; F32.9 Major depressive disorder, single episode, unspecified; K44.9 Diaphragmatic hernia without obstruction or gangrene; J44.9 Chronic obstructive pulmonary disease, unspecified; I25.10 Atherosclerotic heart disease of native coronary artery without angina pectoris; I11.0 Hypertensive heart disease with heart failure; I50.9 Heart failure, unspecified; M19.90 Unspecified osteoarthritis, unspecified site; R13.10 Dysphagia, unspecified; Z96.642 Presence of left artificial hip joint; Z95.1 Presence of aortocoronary bypass graft; Z87.891 Personal history of nicotine dependence; Z82.49 Family history of ischemic heart disease and other diseases of the circulatory system; Z79.899 Other long term (current) drug therapy; Z90.81 Acquired absence of spleen
CPT/HCPCS: 36415; 71045; 71110; 80048; 84484; 85007; 85025; 85610; 85730; 93005; 94640; 94760; 96374; 96375; G0378; A9270-GY; C9113; J0690; J2060; J2270; J2704; J3010; J7030; J7042